=== PATIENT | male | born 1945 | race American Indian/Alaskan Native ===

== ENCOUNTER 2017-01-18 10:07 | Outpatient (CLI) | payer MEDICARE ==
[2017-01-18 10:48] LABS: Hematocrit 41.4 % (35.5-45.6); Hemoglobin 14.2 gm/dl (11.8-15.2); Mean Corpuscular HGB Conc 34 % (32-34); Mean Corpuscular Hemoglobin 30 pg (28-32); Mean Corpuscular Volume 88 fl (84-94); Platelet Count 194 K/mm3 (140-440); Red Blood Count 4.69 M/mm3 (3.65-5.03); Red Cell Distribution Width 13.3 % (13.2-15.2); White Blood Count 4.2 K/mm3 (4.5-11.0)
[2017-01-18 11:24] LABS: Erythrocyte Sedimentation Rate 12 mm/Hr (0-20)
[2017-01-18 11:26] LABS: Alanine Aminotransferase 19 units/L (7-56); Albumin 4.1 g/dL (3.9-5); Albumin/Globulin Ratio 1.5 %; Alkaline Phosphatase 60 units/L (35-129); Anion Gap 17 mmol/L; BUN/Creatinine Ratio 11.81; Blood Urea Nitrogen 13 mg/dL (9-20); Calcium 8.9 mg/dL (8.4-10.2); Carbon Dioxide 27 mmol/L (22-30); Chloride 103.3 mmol/L (98-107); Glucose 79 mg/dL (75-100); Sodium 143 mmol/L (137-145); Total Protein 6.9 g/dL (6.3-8.2)
--- NOTE | 2017-01-21 19:26 | Magnetic Resonance Report ---
MR scan of the cranium was performed without contrast. Pulse sequences included: 1. T1 weighted sagittal and axial images without contrast 2. T2 weighted axial and coronal images 3. FLAIR axial images 4. Diffusion-weighted axial images 5. Apparent diffusion coefficient images Views of the posterior fossa showed a normal craniocervical junction. Cerebellar pontine angles were normal with normal seventh-eighth nerve complexes. Brainstem was normal. 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 with increased signal seen on T2 and DWI images and decreased signal on ADC images. The ventricular system showed moderate dilatation but no distortion. Images of the hemispheres showed an area of increased signal in the frontal poles on either side. Areas of increased signal were also seen in the occipital regions bilaterally. There is a possible lesion also seen in the left frontal region in the prefrontal motor area. Mild white matter disease is also present Sinuses, flow voids in the [place], orbits, pituitary and basal ganglia were normal. Impression: Abnormal MR scan of the cranium without contrast. 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 ventricular dilation and white matter araiosis e. 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 The cortical atrophy could be the result of head trauma but could also be due to alcohol abuse. This study was compared to a previous study done at [facility] last year. No change is seen
== END 2017-01-18 10:08 | disposition home or self-care (01) ==
LOC: MRI 10:07
PROVIDERS: ATTEND Specialist
DX: G40.209 Localization-related (focal) (partial) symptomatic epilepsy and epileptic syndromes with complex partial seizures, not intractable, without status epilepticus (principal); R27.0 Ataxia, unspecified
CPT/HCPCS: 36415; 70551; 80053; 80177; 82607; 82747; 84439; 84443; 85027; 85652